=== PATIENT | female | born 1965 | race Caucasian/White ===

== ENCOUNTER 2024-10-26 14:12 | Outpatient (CLI) | payer OTHER, SELFPAY | END 2024-10-26 14:13 | disposition home or self-care (01) | LOC: MICIMG 14:15 | PROVIDERS: PCP Internal Medicine; Visit Provider Internal Medicine | DX: Z12.31 Encounter for screening mammogram for malignant neoplasm of breast (principal) | CPT/HCPCS: 77063; 77067 ==

== ENCOUNTER 2025-06-04 16:48 | Emergency (ER) | payer OTHER, SELFPAY ==
--- NOTE | ~2025-06-04 | XR_ITS ---
EXAMINATION: XR wrist LT min 3V, 06/04/2025 17:43 CDT HISTORY: L wrist pain COMPARISON: No comparisons available. Findings: There is a corticated fragment adjacent to the trapezium probably sequelae of a previous fracture, no acute fracture is identified Moderate to severe degenerative changes of the first metacarpal carpal joint. Soft tissues unremarkable. Impression: No acute fracture or malalignment. Reviewed, dictated and finalized at location P. Impression: No acute fracture or malalignment.
--- NOTE | ~2025-06-04 | XR_ITS ---
EXAMINATION: XR chest 2V, 06/04/2025 17:43 CDT HISTORY: cardiac w/u COMPARISON: No comparisons available. Technique: 2 views obtained. Findings: The lungs are clear, no effusion. No pneumothorax. Heart is normal size. Mediastinal and hilar contours are within normal limits. Bony thorax no acute abnormality. Impression: No acute cardiopulmonary abnormality. Reviewed, dictated and finalized at location P. Impression: No acute cardiopulmonary abnormality.
[2025-06-04 17:15] VITALS: BP 110/61; PULSE 69; RESP 20; TEMP 36.7; O2SAT 100
--- NOTE | 2025-06-04 17:18 | ECG_ITS ---
Test Date: 2025-06-04 17:34:41 Measurements Intervals [place] Rate: 62 P: 57 CA: 172 QRS: 52 QRSD: 84 T: 41 QT: 406 QTc: 415 Interpretive Statements SINUS RHYTHM BASELINE ARTIFACT- V3-V6 NORMAL ECG No previous ECG available for comparison Electronically Signed On 06-04-2025 18:37:21 CDT by Shane Rdz D.O.
--- NOTE | 2025-06-04 17:34 | ED_ITS ---
HPI - General Adult General Chief complaint: Unspecified Stated complaint: R jaw pain, L wrist pain, urgent care sent to ed Time Seen by Provider: 06/04/25 16:56 Source: patient Mode of arrival: ambulatory Limitations: no limitations History of Present Illness HPI narrative: Patient is a 60-year-old female who presents to the ED who presents to the ED with c/o L wrist pain, R jaw pain. Patient reports over the past 1 week, she has been having pain throughout her L wrist, near the base of her thumb. Worse with certain movements/ pressure on wrist. Denies alleviating factors. Reports intermittent tingling in L hand/fingers. Denies any injury. Reports yesterday she began having pain throughout her right-sided jaw. Worse with eating/chewing, but reports constant dull pain. States this afternoon, R jaw pain became worse. She went to an urgent care, and was referred to the ED for further evaluation and r/o of cardiac disease. Denies hx of cardiac disease, HTN, HLD, DM, smoking. Denies chest pain, shortness breath. Review of Systems 2 Review of Systems: All systems reviewed & are unremarkable except as noted in HPI. All systems reviewed & are unremarkable except as noted in HPI and below Exam 2 Narrative: GENERAL: Well appearing, well-nourished, non-toxic, in no acute distress. HEAD: Normocephalic, atraumatic. ENT: No TTP throughout inner mouth, no focal abscess/drainage. No trismus or stridor. Mild tenderness palpation over lateral/posterior right mandibular region. No significant clicking. No swelling. RESPIRATORY: Airway patent, respirations nonlabored. Clear to auscultation bilaterally, no rales, rhonchi, wheezing. CARDIOVASCULAR: Regular rate and rhythm without murmurs, rubs, or gallops. Radial pulses strong and easily palpable MUSCULOSKELETAL: Moves all extremities. No gross deformities. Mild tenderness to palpation over base of left 1st metacarpal. Tenderness with palpation over carpal tunnel with positive carpal compression testing, reproduction of tingling sensation in fingers with compressive testing. No significant swelling. Capillary refill intact. Normal sensation. Normal sensation throughout left upper extremity. SKIN: Warm, dry, normal color. NEURO: A&O X3. Speech clear. Cranial nerves II-XII grossly intact. Steady gait. No ataxic movements. PSYCHIATRIC: Appropriate mood and affect. Normal interaction. Course Vital Signs Vital signs: Vital Signs Temperature 98.0 F 06/04/25 17:15 Pulse Rate 69 06/04/25 17:15 Respiratory Rate 20 06/04/25 17:15 Blood Pressure 110/61 06/04/25 17:15 Pulse Oximetry 100 06/04/25 17:15 Oxygen Delivery Room Air 06/04/25 17:15 Temperature 98.0 F 06/04/25 17:15 Pulse Rate 69 06/04/25 17:15 Respiratory Rate 20 06/04/25 17:15 Blood Pressure 110/61 06/04/25 17:15 Pulse Oximetry 100 06/04/25 17:15 Oxygen Delivery Room Air 06/04/25 17:15 Medical Decision Making MDM Narrative Medical decision making narrative: Patient presented to ED with 1 week history of left wrist pain, right-sided jaw pain since yesterday. Was sent from urgent care to rule out cardiac disease. Vital signs stable upon arrival. Patient in no acute distress. Denying chest pain or shortness of breath. EKG without ischemic changes. Normal sinus rhythm. Trop undetectable Basic laboratory studies otherwise unremarkable HEART score 1 d/t age, no known risk factors otherwise for ACS Chest x-ray is clear X-ray of left wrist clear. 3 hour trop also undetectable. Discussed lab and imaging findings, overall reassuring workup with patient. Low suspicion for ACS at this time. Discussed possibility of carpal tunnel syndrome, wrist sprain, TMJ, musculoskeletal etiology. Patient provided with Bandar bandage. Discussed rice therapy. Will refer to Orthopedics/ENT for further evaluation. Given strict return precautions. She is in agreement with plan, feels comfortable going home. Discharged in stable condition. Medical Records Medical records reviewed: Yes I reviewed the external patient's medical records. Vital Signs Vital Signs: Vital Signs Temperature 98.0 F 06/04/25 17:15 Pulse Rate 69 06/04/25 17:15 Respiratory Rate 20 06/04/25 17:15 Blood Pressure 110/61 06/04/25 17:15 Pulse Oximetry 100 06/04/25 17:15 Oxygen Delivery Room Air 06/04/25 17:15 Temperature 98.0 F 06/04/25 17:15 Pulse Rate 69 06/04/25 17:15 Respiratory Rate 20 06/04/25 17:15 Blood Pressure 110/61 06/04/25 17:15 Pulse Oximetry 100 06/04/25 17:15 Oxygen Delivery Room Air 06/04/25 17:15 Lab Data Lab results reviewed: Yes I reviewed the patient's lab results. 06/04/25 17:40 06/04/25 17:40 Labs: Lab Results 06/04/25 06/04/25 Range/Units 17:40 20:31 WBC 5.0 (4.5-10.0) K/mm3 RBC 3.89 L (4.2-5.4) M/mm3 Hgb 12.5 (12.0-15.0) g/dL Hct 37.4 (37.0-47.0) % MCV 96.1 (80-100) fl MCH 32.1 (26-34) pg MCHC 33.4 (32-36) g/dl RDW 11.7 (11.5-14.5) % Plt Count 198 (150-375) k/mm3 MPV 9.5 (7.4-10.4) fl Immature Gran % (Auto) 0.2 (0-0.5) % Neut % (Auto) 45.7 (45.5-73.1) % Lymph % (Auto) 43.3 (18.3-44.2) % [place] % (Auto) 8.6 H (2.6-8.5) % Eos % (Auto) 1.4 (0-4.4) % Baso % (Auto) 0.8 (0.2-1.2) % Lymph # (Auto) 2.16 (0.9-3.2) K/mm3 [place] # (Auto) 0.4 (0.1-0.6) K/mm3 Eos # (Auto) 0.1 (0-0.3) K/mm3 Baso # (Auto) 0.0 (0.0-0.1) K/mm3 Abs Immat Gran (auto) 0.01 (0.00-0.031) K/mm3 Absolute Neuts (auto) 2.3 (1.3-6.7) K/mm3 Absolute Nucleated RBC 0.000 (0.0-0.012) K/mm3 Nucleated RBC % 0.0 (0.0-0.2) % PT 12.6 (11.1-14.7) Seconds INR 0.9 APTT 24.6 (22.3-36.8) Seconds Sodium 138 (137-145) mmol/L Potassium 3.9 (3.4-5.0) mmol/L Chloride 103 (98-107) mmol/L Carbon Dioxide 28 (22-30) mmol/L Anion Gap 7 (4-12) mmol/L BUN 14 (7-17) mg/dL Creatinine 0.73 (0.7-1.0) mg/dL Estim Creat Clear Calc Not Reportable Estimated GFR > 60 (59 - ) Glucose 104 (65-110) mg/dL Calcium 8.8 (8.4-10.2) mg/dL Total Bilirubin 0.4 (0.2-1.3) mg/dL AST 35 (14-36) U/L ALT 26 (6-35) U/L Alkaline Phosphatase 61 (38-126) U/L Troponin I < 0.012 < 0.012 (0.000-0.034) ng/mL Total Protein 7.1 (6.3-8.2) g/dL Albumin 4.1 (3.5-5.1) g/dL Imaging Data Attestation: I personally reviewed and interpreted this imaging study as follows: Radiologist's impression: ITS Impressions Chest X-Ray 06/04/25 17:49 Impression: No acute cardiopulmonary abnormality. Wrist X-Ray 06/04/25 17:50 Impression: No acute fracture or malalignment. ECG Data EKG #1: Attestation: I personally reviewed and interpreted this ECG as follows: ECG completion date: 06/04/25 ECG completion time: 17:34 EKG Interpretation: normal rate (62), sinus rhythm and no ST changes Discharge Plan Discharge Clinical Impression: Sprain of jaw, right side, initial encounter Sprain of left wrist Qualifiers: Encounter type: initial encounter Wrist sprain location: unspecified location Q ualified Code(s): S63.502A - Unspecified sprain of left wrist, initial encounter Patient Disposition: Home Condition: Stable Instructions: Antibiotic Form, Wrist Injury (ED), Carpal Tunnel Syndrome (DC), Temporomandibular Disorder (ED) Additional Instructions: Your workup here was reassuring against a cardiac cause of your pain. There was no evidence of injury to your heart. It is possible you may have carpal tunnel syndrome or TMJ. Recommend ice to areas of pain, Tylenol/ibuprofen for pain consistently, Bandar bandage for compression/support. Return to the ED if you experience worsening or severe pain, chest pain, difficulty breathing, unable to keep down food or drink, numbness of arms or legs, weakness of arms or legs, persistent fevers, or any other symptoms of concern. Patient Language: [place]ian Follow-up/Referrals: Ángel,MD Shun [Primary Care Provider] Moises Hui MD [Physician, Orthopedics] Referral Note: ORTHOPEDICS Billy Mueller MD [Physician, Ear, Nose, Throat] Referral Note: ENT Time of Disposition: 21:08 Quality HEART score for chest pain patients History: slightly suspicious ECG: normal Age: > 45 and < 65 years Risk factors: no risk factors known Troponin: < or = to 1x normal limit Heart score: 1
[2025-06-04 17:46] LABS: Hematocrit 37.4 % (37.0-47.0); Hemoglobin 12.5 g/dL (12.0-15.0); Immature Granulocyte Percent A 0.2 % (0-0.5); Lymphocytes Absolute Auto 2.16 K/mm3 (0.9-3.2); Mean Corpuscular HGB Conc 33.4 g/dl (32-36); Mean Corpuscular Hemoglobin 32.1 pg (26-34); Mean Corpuscular Volume 96.1 fl (80-100); Nucleated Red Blood Cells Absolute Auto 0.000 K/mm3 (0.0-0.012); Nucleated Red Blood Cells Perc 0.0 % (0.0-0.2); Platelet Count Result 198 k/mm3 (150-375); Red Blood Count 3.89 M/mm3 (4.2-5.4); White Blood Count 5.0 K/mm3 (4.5-10.0)
[2025-06-04 17:56] LABS: INR 0.9; Prothrombin Time 12.6 Seconds (11.1-14.7)
[2025-06-04 17:57] LABS: Partial Thromboplastin Time 24.6 Seconds (22.3-36.8)
[2025-06-04 18:03] LABS: Alanine Aminotransferase 26 U/L (6-35); Albumin Level 4.1 g/dL (3.5-5.1); Alkaline Phosphatase 61 U/L (38-126); Anion Gap 7 mmol/L (4-12); Aspartate Amino Transferase 35 U/L (14-36); Bilirubin,Total 0.4 mg/dL (0.2-1.3); Blood Urea Nitrogen 14 mg/dL (7-17); Calcium 8.8 mg/dL (8.4-10.2); Carbon Dioxide 28 mmol/L (22-30); Chloride 103 mmol/L (98-107); Estimated Glomerular Filt Rate > 60; Glucose 104 mg/dL (65-110); Potassium 3.9 mmol/L (3.4-5.0); Sodium 138 mmol/L (137-145); Total Protein 7.1 g/dL (6.3-8.2)
[2025-06-04 18:14] LABS: Troponin I < 0.012 ng/mL (0.000-0.034)
--- NOTE | 2025-06-04 20:33 | ECG_ITS ---
Test Date: 2025-06-04 20:47:00 Measurements Intervals [place] Rate: 59 P: 82 VT: 173 QRS: 56 QRSD: 81 T: 48 QT: 415 QTc: 412 Interpretive Statements SINUS BRADYCARDIA BASELINE ARTIFACT- I, II, V4-V6 BORDERLINE ECG Compared to ECG 06/04/2025 17:34:41 NO SIGNIFICANT CHANGE Electronically Signed On 06-05-2025 09:00:37 CDT by Shane Rdz D.O.
[2025-06-04 21:00] LABS: Troponin I < 0.012 ng/mL (0.000-0.034)
== END 2025-06-04 21:43 | disposition home or self-care (01) ==
PROVIDERS: Emergency Provider Physician Assistant; PCP Internal Medicine
DX: S63.502A Unspecified sprain of left wrist, initial encounter (principal); S03.41XA Sprain of jaw, right side, initial encounter; R00.1 Bradycardia, unspecified; X58.XXXA Exposure to other specified factors, initial encounter
CPT/HCPCS: 36415; 71046; 73110; 80053; 84484; 85025; 85610; 85730; 93005; 99284

== ENCOUNTER 2025-08-04 10:41 | Outpatient (CLI) | payer OTHER, SELFPAY ==
--- NOTE | ~2025-08-04 | CT_ITS ---
EXAMINATION: CT wrist LT wo con DATE: 08/04/2025 10:54 INDICATION: Localized swelling/mass at the lateral aspect of the left wrist TECHNIQUE: High resolution computed tomography (CT) of the left wrist was performed without intravenous contrast. Additional sagittal and coronal reconstructions were performed. Automated exposure control and iterative reconstruction technique were employed. The dose-length product was 60.47 mGy-cm. COMPARISON: None FINDINGS: Bone alignment is normal. There are couple located ossicles along the radial margin of the trapezium which could represent heterotopic ossicles related to chronic soft tissue injury versus large loose osteochondral bodies related to the severe osteoarthritis at the first metacarpal metacarpal joint. No acute fractures. Additional mild polyarticular osteoarthritis at the distal radioulnar, triscaphe and second carpal metacarpal joints. There are sclerotic margins at a likely degenerative subchondral cyst along the dorsal margin of the distal articular surface of the ulna. Soft tissues are unremarkable. IMPRESSION: 1. Couple corticated ossicles along the radial margin of the trapezium which are likely either heterotopic ossicles related to chronic soft tissue injury versus degenerative loose osteochondral bodies related to severe osteoarthritis at the first carpometacarpal joint. Reviewed, dictated and finalized at location A. LATORY AND COMPLIANCE TECHNICIAN IMPRESSION: 1. Couple corticated ossicles along the radial margin of the trapezium which ar e likely either heterotopic ossicles related to chronic soft tissue injury vers us degenerative loose osteochondral bodies related to severe osteoarthritis at the first carpometacarpal joint.
== END 2025-08-04 10:42 | disposition home or self-care (01) ==
LOC: MICIMG 10:42
PROVIDERS: PCP Orthopaedic Surgery; Visit Provider Orthopaedic Surgery
DX: R22.32 Localized swelling, mass and lump, left upper limb (principal)
CPT/HCPCS: 73200